=== PATIENT | male | born 2000 | race Caucasian/White ===

== ENCOUNTER 2023-03-17 17:32 | Emergency (ER) | payer BC, MEDICAID, SELFPAY ==
[2023-03-17 17:48] VITALS: BP 132/80; PULSE 79; RESP 16; TEMP 36.4; O2SAT 100; BMI 19.6
--- NOTE | 2023-03-17 17:51 | ECG_ITS ---
[facility] Test Date: 2023-03-17 Pat Name: Gui York Department: Room: Gender: Male [employer]: : 2000 Requested By: Miah Shaffer Order Number: [id number] García MD: Manohra Garza M.D. Measurements Intervals [place] Rate: 77 P: 85 TX: 122 QRS: 99 QRSD: 113 T: 54 QT: 385 QTc: 438 Interpretive Statements SINUS RHYTHM BORDERLINE RIGHT AXIS DEVIATION [QRS AXIS > 90] MODERATE INTRAVENTRICULAR CONDUCTION DELAY [110+ ms QRS DURATION] ST ELEVATION, PROBABLY EARLY REPOLARIZATION [ST ELEVATION WITH NORMALLY INFLECTED T-WAVE] NONSPECIFIC ST & T-WAVE ABNORMALITY No previous ECG available for comparison Electronically Signed On 03-17-2023 18:30:54 OFFAL BALER by Manohar Garza M.D. [id number]
--- NOTE | 2023-03-17 18:12 | W.ED.CHESTPA ---
HPI - Chest Pain General: Chief Complaint: Chest Pain Stated Complaint: pt stated cp before arriving, allergic reaction Time Seen by Provider: 03/17/23 18:06 History of Present Illness: 22-year-old male patient comes in today for complaints of chest pressure after taking a hydrocodone tablet. Patient had a vasectomy this morning and was prescribed hydrocodone, cephalexin, and lorazepam. Patient was given lorazepam before the procedure. Patient has yet to start the cephalexin. Patient took one of the hydrocodone this afternoon about 2:00 for pain. Shortly after taking the medication patient started having chest pressure. Patient appears nontoxic. Patient appears in no acute distress. Review of Systems General: Reports: 10 or more systems reviewed and unremarkable except in HPI and below Card: Reports: chest pain Physical Exam Const: COMMON NORMALS: alert HENMT: COMMON NORMALS: normocephalic HEAD & SCALP: normocephalic Neck/C-Spine: COMMON NORMALS: no meningeal signs Chest: COMMONS NORMALS: normal inspection of the chest and normal palpation of entire chest wall Resp: COMMON NORMALS: normal respiratory effort and clear to auscultation bilaterally AUSCULTATION: clear to auscultation bilaterally Cardio: COMMON NORMALS: regular rate and regular rhythm RATE: regular rate RHYTHM: regular rhythm GI: COMMON NORMALS: Soft to palpation PALPATION: Yes Soft to palpation Back/Pelvis: COMMON NORMALS: thoracic and lumbar spine normal to inspection Extremity: COMMON NORMALS: full ROM Neuro: SENSORIUM/ORIENTATION: Yes alert MENINGEAL SIGNS: Yes no meningeal signs Skin: COMMON NORMALS: no rashes or lesions noted NARRATIVE SKIN EXAM: Wounds to the scrotal sac are well-approximated with no signs of bleeding or redness GENERAL SKIN EXAM: no rashes or lesions noted Course Vital Signs: Vital signs: Vital Signs Temperature 97.6 F 03/17/23 17:48 Pulse Rate 71 03/17/23 18:42 Respiratory Rate 18 03/17/23 18:42 Blood Pressure 132/80 03/17/23 17:48 Pulse Oximetry 100 03/17/23 18:42 Oxygen Delivery Me thod Room Air 03/17/23 18:42 MDM - Chest Pain Medical Decision Making Patient came in due to chest pressure. Patient was given a hydrocodone around 2:00 and started having chest discomfort shortly afterwards. Patient appears nontoxic. Respirations are even lungs are clear to auscultation. Vital signs are normal. Differential diagnosis includes not limited to arrhythmia, anxiety, adverse drug effect. Patient describes some dyspepsia secondary to hydrocodone. Patient was given Mylanta relief of discomfort. Reviewed exam and recommendations to patient patient reported understanding agreed to plan. No radiology studies performed this visit EKG Data EKG 1: I personally reviewed and interpreted this EKG as follows: EKG interpretation date: 03/17/23 EKG interpretation time: 18:45 Prior EKG tracings: not available for review Interpretation: EKG shows a sinus rhythm with a regular rate at 77 bpm. No ectopy is noted. ST elevation is believed to be early repolarization which is normal for age. No prior exam was available for comparison. Computer generated interpretation: Sinus rhythm, borderline right axis deviation, moderate intraventricular conduction delay, ST elevation, probably early repolarization, nonspecific ST and T wave abnormality, no previous EKG available for comparison. Discharge Plan Discharge Patient Disposition: Home Clinical Impression: Adverse drug effect Qualifiers: Encounter type: initial encounter Qualified Code(s): T50.905A - Adverse effect of unspecified drugs, medicaments and biological substances, initial encounter Condition: Stable Discharge Orders: Discharge ED (Routine); Ordered 03/17/23 Ordered By: Severo Gipson Referrals: Alphonso Koenig Jr, MD [Family Provider] - Discharge Diet: Usual diet Discharge Activity: Increase activity as tolerated Activity Restrictions/Additional Instructions: Continue with routine medications. Make sure to take hydrocodone with food on your stomach to prevent side effects. May try just to use Tylenol or ibuprofen to control your pain. Follow-up with primary care or return to ER as needed. Coding Level of Care Code ED Vice President Quality Assurance for Franci Crisostomo
[2023-03-17] MEDS: alum-mag-hydroxide-sime 30 mL UDC PO (18:26)
[2023-03-17 18:42] VITALS: PULSE 71; RESP 18; O2SAT 100
== END 2023-03-17 19:16 | disposition home or self-care (01) ==
PROVIDERS: Emergency Provider Nurse Practitioner Family; Family Provider Pediatrics Adolescent Medicine
DX: R07.89 Other chest pain (principal); T40.2X5A Adverse effect of other opioids, initial encounter
CPT/HCPCS: 93005; 99283

== ENCOUNTER → 2023-04-11 13:40 | Outpatient (BNVA) | payer BC, MEDICAID, SELFPAY | PROVIDERS: Family Provider Pediatrics Adolescent Medicine; PCP Nurse Practitioner Family; Visit Provider Nurse Practitioner Family | DX: R05.9 Cough, unspecified (principal); J02.9 Acute pharyngitis, unspecified | CPT/HCPCS: 87071; 87400; 87426; 87880 ==

== ENCOUNTER 2024-08-02 12:42 | Outpatient (CLI) | payer BC, MEDICAID, SELFPAY ==
--- NOTE | 2024-08-02 12:46 | CT_ITS ---
WS: [id number] CT ABDOMEN AND PELVIS WITH CONTRAST HISTORY: GENERALIZED ABDOMINAL PAIN TECHNIQUE: Imaging performed of the abdomen and pelvis with IV contrast. Single phase imaging of the abdomen. Coronal and sagittal reformats are submitted. All CT scans at [facility] use at least one of these dose optimization techniques: automated exposure control; mA and/or kV adjustment per patient size (includes targeted exams where dose is matched to clinical indication); or iterative reconstruction. IV CONTRAST: Omnipaque 350; 100 mL IV. Oral contrast: No DLP: 336.90 mGy.cm COMPARISON: 04/06/2022 Lower thorax: Lung bases are clear. Heart is normal size. No hiatal hernia. Liver/biliary system: Normal size with no intrahepatic dilatation. Gallbladder: Prior cholecystectomy. Pancreas: Normal size pancreas and pancreatic duct. No adjacent inflammation. Spleen: Normal size spleen. No mass or infarct. Adrenal glands: Normal. Right kidney: Normal. Small extrarenal pelvis. Left kidney: Normal. Small extrarenal pelvis. Aorta: Normal aorta. The celiac axis is small but patent. Normal SMA. Lymphadenopathy: None. Free fluid: None. GI tract: No obstruction. Normal stomach and small bowel. No appendicitis. Mild constipation. Abdominal wall: 13 mm abdominal wall well-circumscribed nodule just below the level of the umbilicus is probably a sebaceous cyst or epidermoid. Pelvis: No free fluid or adenopathy within the pelvis. Bones: Mild LEFT curvature lumbar spine. Bone island LEFT femoral head. CT/CT abdomen pelvis w con* [id number] IMPRESSION: 1. No acute abdominal or pelvic abnormalities. 2. Mild diffuse constipation. 3. No free fluid. No adenopathy. 4. Prior cholecystectomy.
[2024-08-02] MEDS: iohexol 350 mg/mL 500 mL Btl (per mL) IV (13:28)
== END 2024-08-02 12:43 | disposition home or self-care (01) ==
PROVIDERS: Family Provider Pediatrics Adolescent Medicine; PCP Nurse Practitioner Family; Visit Provider Nurse Practitioner
DX: R10.84 Generalized abdominal pain (principal); K59.00 Constipation, unspecified; Z90.49 Acquired absence of other specified parts of digestive tract; R93.5 Abnormal findings on diagnostic imaging of other abdominal regions, including retroperitoneum; M43.8X6 Other specified deforming dorsopathies, lumbar region; R93.7 Abnormal findings on diagnostic imaging of other parts of musculoskeletal system
CPT/HCPCS: 74177

== ENCOUNTER → 2025-02-14 10:00 | Outpatient (BNVA) | payer BC, MEDICAID, SELFPAY | PROVIDERS: Family Provider Pediatrics Adolescent Medicine; PCP Nurse Practitioner Family; Visit Provider Family Medicine | DX: J03.90 Acute tonsillitis, unspecified (principal) | CPT/HCPCS: 87071; 87880 ==